=== PATIENT | female | born 1950 | race Caucasian/White ===

== ENCOUNTER 2016-06-11 12:58 | Day surgery (SDC) | payer BC ==
[2016-06-11 13:44] VITALS: BP 125/76; PULSE 63; RESP 14; TEMP 97.6; O2SAT 96
[2016-06-11 14:45] VITALS: BP 145/79; PULSE 55; RESP 16; TEMP 98; O2SAT 99
[2016-06-11] MEDS ORDERED: LIDOCAINE HCL 1% PF 30 ML VIAL ONE (14:46)
[2016-06-11] MEDS ORDERED: SODIUM BICARBONATE 8.4% INJ 50 ML ONE (14:47)
[2016-06-11 15:05] VITALS: BP 131/83; PULSE 64; RESP 16; O2SAT 98
--- NOTE | 2016-06-11 15:22 | RADRPT ---
EXAM DATE/TIME: 06/11/2016 13:27 [facility] COMPARISON: No previous studies available for comparison. INDICATIONS : Thyroid nodule; left. MEDICAL HISTORY : Hyperlipidemia. Osteopenia. Benign neoplasm of thyroid. Lyme disease. Nephrolithiasis. SURGICAL HISTORY : None. ENCOUNTER: Initial ACUITY: 3 months PAIN SCORE: 0/10 LOCATION: Left neck ORGAN: Left thyroid lobe SPECIMENS: Three fine needle aspirate(s) submitted for pathologic evaluation. DEVICE: 22 gauge needle Post procedure scanning reveals no hematoma or other complication. The possibility does exist that the tissue obtained will be non-diagnostic. If the sample is non-kwame gnostic a repeat biopsy or surgical biopsy may need to be performed. TECHNIQUE: 1. Ultrasound guidance for needle biopsy. 2. Needle biopsy. The risks, benefits, and alternatives to ultrasound guided needle biopsy were explained to the patien t in detail including the risk of bleeding and infection. Written and verbal informed consent was ob tained. With the patient on the ultrasound table, images were obtained. Overlying skin was prepped and drape d in the usual sterile fashion and Lidocaine was utilized as a local anesthetic. A needle was advanced into the identified target and the number of specimens as above obtained and mercedes bmitted for pathologic evaluation. The patient tolerated the procedure well and left the ultrasound suite in stable condition. CONCLUSION: Uncomplicated ultrasound guided biopsy on a dominant nodule left lobe of the thyroid.. Rigo Diaz MD FACR on June 11, 2016 at 15:20 Board Certified Radiologist. This report was verified electronically.
--- NOTE | 2016-06-11 15:36 | RADRPT ---
EXAM DATE/TIME: 06/11/2016 13:27 [facility] COMPARISON: No previous studies available for comparison. INDICATIONS : Thyroid nodule; right. MEDICAL HISTORY : Hyperlipidemia. Osteopenia. Benign neoplasm of thyroid. Lyme disease. Nephrolithiasis. SURGICAL HISTORY : None. ENCOUNTER: Initial ACUITY: 3 months PAIN SCORE: 0/10 LOCATION: Right ORGAN: Right thyroid lobe SPECIMENS: Two fine needle aspirate(s) submitted for pathologic evaluation. DEVICE: 22 gauge needle Post procedure scanning reveals no hematoma or other complication. The possibility does exist that the tissue obtained will be non-diagnostic. If the sample is non-kwame gnostic a repeat biopsy or surgical biopsy may need to be performed. TECHNIQUE: 1. Ultrasound guidance for needle biopsy. 2. Needle biopsy. The risks, benefits, and alternatives to ultrasound guided needle biopsy were explained to the patien t in detail including the risk of bleeding and infection. Written and verbal informed consent was ob tained. With the patient on the ultrasound table, images were obtained. Overlying skin was prepped and drape d in the usual sterile fashion and Lidocaine was utilized as a local anesthetic. A needle was advanced into the identified target and the number of specimens as above obtained and mercedes bmitted for pathologic evaluation. The patient tolerated the procedure well and left the ultrasound suite in stable condition. CONCLUSION: Uncomplicated ultrasound guided needle biopsy dominant nodule in the right lobe. This measures 1 cm. Smaller less than 1 cm nodules are present as well.. Rigo Diaz MD FACR on June 11, 2016 at 15:34 Board Certified Radiologist. This report was verified electronically.
== END 2016-06-11 15:15 | disposition home or self-care (01) ==
LOC: HRAD 12:58 → HRIP 13:09 → EDSTATUS 13:30 → HRAD 15:15
DX: E04.2 Nontoxic multinodular goiter (principal); E78.5 Hyperlipidemia, unspecified; Z87.442 Personal history of urinary calculi
CPT/HCPCS: 10022; 76942; 88172; 88173